=== PATIENT | female | born 1985 | race African-American/Black ===

== ENCOUNTER 2016-05-31 15:27 | Emergency (ER) | payer OTHER ==
[2016-05-31 15:33] VITALS: TEMP 98; BMI 37.5
[2016-05-31 17:00] LABS: BASOPHIL 0.7 % (0-2.0); EOSINOPHIL 2.8 % (0-4.5); MCH 30.9 pg (25.7-33.7); MCHC 33.1 g/dl (32.0-36.0); MEAN CELL VOLUME 93.3 fl (80-96); MEAN PLT VOLUME 6.6 fl (7.5-11.1); NEUTROPHILS 51.7 % (42.8-82.8); PLATELET COUNT 204 K/MM3 (134-434); RDW 13.7 % (11.6-15.6); WHITE BLOOD COUNT 7.2 K/mm3 (4.0-10.0)
[2016-05-31 17:01] LABS: URINE APPEARANCE CLEAR; URINE BILIRUBIN NEGATIVE (NEGATIVE); URINE BLOOD NEGATIVE (NEGATIVE); URINE COLOR YELLOW; URINE GLUCOSE (UA) NEGATIVE (NEGATIVE); URINE KETONE NEGATIVE (NEGATIVE); URINE LEUK ESTERASE NEGATIVE (NEGATIVE); URINE NITRITE NEGATIVE (NEGATIVE); URINE PROTEIN NEGATIVE (NEGATIVE); URINE UROBILINOGEN 2.0 E.U/dl E.U./dl (0.2-1.0)
--- NOTE | 2016-05-31 17:09 | PDOC ---
History of Present Illness - History of Present Illness Initial Comments: 05/31/16 17:52 The patient is a 31 year old female, with no significant past medical history, who presents to the emergency department with suprapubic abdominal pain for about a week. She reports the pain is localized to the area just below her bellybutton, constant, and nonradiating, which she states increased in severity just 3 days ago. The patient also reports feeling as if she is straining while urinating. The patient states her menstrual cycle has been irregular this past year and reports her most recent menstruation lasted until the beginning of May. She denies seeing her Veneer Sample Maker in the past 2 months because she was enrolled in classes that she could not miss. The patient reports one episode of emesis 2 days ago and denies any episodes since. LMP: March 2016 She denies chest pain, shortness of breath, headache and dizziness. She denies fever, chills, nausea, vomit, diarrhea and constipation. She denies dysuria, frequency, urgency and hematuria. Allergies:NKDA Past surgical history: x2 PCP - Dr. Abdirashid Ro residential framing carpenter: Dr. Soto <Marilynn Lara - Last Filed: 05/31/16 18:18> <Joy Inman - Last Filed: 05/31/16 18:29> - General Chief Complaint: Pain Stated Complaint: ABD PAIN Past History <Marilynn Lara - Last Filed: 05/31/16 18:18> - Past Medical History Psychiatric Problems: Yes (BIPOLAR, ANXIETY, DEPRESSION) - Reproductive History Is Patient Now?: No (#): 7 Para: 2 Dysfunctional Uterine Bleeding: Yes - Psycho/Social/Smoking Cessation Hx Suicidal Ideation: No Smoking Status: No Smoking History: Never smoked Number of Cigarettes Smoked Daily: 3 Information on smoking cessation initiated: No Hx Alcohol Use: No Drug/Substance Use Hx: No <Joy Inman - Last Filed: 05/31/16 18:29> - Past Medical History Allergies/Adverse Reactions: Allergies Allergy/AdvReac Type Severity Reaction Status Date / Time Shellfish AdvReac Severe Difficulty Verified 05/31/16 15:33 Breathing Home Medications: Ambulatory Orders Divalproex [Depakote -] 250 mg PO BID 11/27/15 Ondansetron [Zofran Odt -] 4 mg SL PRN PRN #14 od.tablet 11/27/15 Quetiapine Fumarate [Seroquel] 200 mg PO DAILY 11/27/15 Ibuprofen 600 mg PO TID PRN #21 tablet 12/22/15 Review of Systems - Review of Systems Able to Perform ROS?: Yes Comments:: 05/31/16 17:52 CONSTITUTIONAL: Absent: fever, chills, diaphoresis, generalized weakness, malaise, loss of appetite HEENT: Absent: rhinorrhea, nasal congestion, throat pain, throat swelling, difficulty swallowing, mouth swelling, ear pain, eye pain, visual Changes CARDIOVASCULAR: Absent: chest pain, syncope, palpitations, irregular heart rate, lightheadedness , peripheral edema RESPIRATORY: Absent: cough, shortness of breath, dyspnea with exertion, orthopnea, wheezing, stridor, hemoptysis GASTROINTESTINAL: (+) suprapubic abdominal pain, Absent:abdominal distension, nausea, vomiting, diarrhea, constipation, melena, hematochezia GENITOURINARY: Absent: dysuria, frequency, urgency, hesitancy, hematuria, flank pain, genital pain MUSCULOSKELETAL: Absent: myalgia, arthralgia, joint swelling SKIN: Absent: rash, itching, pallor HEMATOLOGIC/IMMUNOLOGIC: Absent: easy bleeding, easy bruising, lymphadenopathy, frequent infections ENDOCRINE: Absent: unexplained weight gain, unexplained weight loss, heat intolerance, cold intolerance NEUROLOGIC: Absent: headache, focal weakness or paresthesias, dizziness, unsteady gait, seizure, mental status changes, bladder or bowel incontinence PSYCHIATRIC: Absent: anxiety, depression, suicidal or homicidal ideation, hallucinations. <Marilynn Lara - Last Filed: 05/31/16 18:18> *Physical Exam - Vital Signs Last Vital Signs Temp Pulse Resp BP Pulse Ox 98 F 78 18 143/77 98 05/31/16 15:30 05/31/16 15:30 05/31/16 15:30 05/31/16 15:30 05/31/16 15:30 - Physical Exam Comments: 05/31/16 17:54 GENERAL: Well developed, well nourished. Awake and alert. No acute distress. HEENT: Normocephalic, atraumatic. PERRLA, EOMI. No conjunctival pallor. Sclera are non- icteric. Moist mucous membranes. Oropharynx is clear. NECK: Supple. Full ROM. No JVD. Carotid pulses 2+ and symmetric, without bruits. No thyromegaly. No lymphadenopathy. CARDIOVASCULAR: Regular rate and rhythm. No murmurs, rubs, or gallops. Distal pulses are 2+ and symmetric. PULMONARY: No evidence of respiratory distress. Lungs clear to auscultation bilaterally. No wheezing, rales or rhonchi. ABDOMINAL: Soft. Non-tender. Non-distended. No rebound or guarding. No organomegaly. Normoactive bowel sounds. MUSCULOSKELETAL Normal range of motion at all joints. No bony deformities or tenderness. No CVA tenderness. EXTREMITIES: No cyanosis. No clubbing. No edema. No calf tenderness. SKIN: Warm and dry. Normal capillary refill. No rashes. No jaundice. NEUROLOGICAL: Alert, awake, appropriate. Cranial nerves 2-12 intact. Normoreflexic in the upper and lower extremities. Normal speech. Toes are down-going bilaterally. Gait is normal without ataxia. PSYCHIATRIC: Cooperative. Good eye contact. Appropriate mood and affect. <Marilynn Lara - Last Filed: 05/31/16 18:18> - Vital Signs Last Vital Signs Temp Pulse Resp BP Pulse Ox 98 F 78 18 143/77 98 05/31/16 15:30 05/31/16 15:30 05/31/16 15:30 05/31/16 15:30 05/31/16 15:30 <Joy Inman - Last Filed: 05/31/16 18:29> ED Treatment Course - LABORATORY CBC & Chemistry Diagram: 05/31/16 16:35 05/31/16 16:35 - ADDITIONAL ORDERS Additional order review: Laboratory Results 05/31/16 16:35 Serum , Qual Negative Urine Color Yellow Urine Appearance Clear Urine pH 7.0 Ur Specific [place] 1.023 Urine Protein Negative Urine Glucose (UA) Negative Urine Ketones Negative Urine Blood Negative Urine Nitrite Negative Urine Bilirubin Negative Urine Urobilinogen 2.0 e.u/dl H Ur Leukocyte Esterase Negative 05/31/16 16:35 RBC 3.47 L MCV 93.3 MCHC 33.1 RDW 13.7 MPV 6.6 L Neutrophils % 51.7 Lymphocytes % 35.7 Monocytes % 9.1 Eosinophils % 2.8 Basophils % 0.7 - RADIOLOGY Radiograph Interpretation: 05/31/16 18:19 EXAM: Pelvic sonogram was read by Getachew Lundberg MD at 18:07 EST FINDINGS:There is a 1.2 cm x 1.0 cm simple cyst of the left ovary. Otherwise the uterus and ovaries are normal. No free fluid is seen. There is normal flow to both ovaries IMPRESSION: Findings of a simple cyst of the left ovary <Marilynn Lara - Last Filed: 05/31/16 18:18> - LABORATORY CBC & Chemistry Diagram: 05/31/16 16:35 05/31/16 16:35 - ADDITIONAL ORDERS Additional order review: Laboratory Results 05/31/16 16:35 Urine Color Yellow Urine Appearance Clear Urine pH 7.0 Ur Specific [place] 1.023 Urine Protein Negative Urine Glucose (UA) Negative Urine Ketones Negative Urine Blood Negative Urine Nitrite Negative Urine Bilirubin Negative Urine Urobilinogen 2.0 e.u/dl H Ur Leukocyte Esterase Negative 05/31/16 16:35 RBC 3.47 L MCV 93.3 MCHC 33.1 RDW 13.7 MPV 6.6 L Neutrophils % 51.7 Lymphocytes % 35.7 Monocytes % 9.1 Eosinophils % 2.8 Basophils % 0.7 - RADIOLOGY Radiology Studies Ordered: Category Date Time Status PELVIC / BLADDER US [US] Stat Ultrasound 05/31/16 16:35 Ordered <Joy Inman - Last Filed: 05/31/16 18:29> Medical Decision Making - Medical Decision Making 05/31/16 18:22 31 yo female p/w suprapubic pain since last week -no fever no chills, no diarrhea she has a soft,nontender abd exam -UA negative -neg preg test -cbc is unremarkab;e and chemistry was wnl pelvic US - small left ovarian cyst,no torsion, normal uterus imp pelvic pain plan- f/u with her parachute officer Dr Gallagher <Joy Inman - Last Filed: 05/31/16 18:29> *DC/Admit/Observation/Transfer - Attestations Scribe Attestion: 05/31/16 17:56 Documentation prepared by Marilynn Lara, acting as medical coding instructor for Joy Inman MD <Marilynn Lara - Last Filed: 05/31/16 18:18> <Joy Inman - Last Filed: 05/31/16 18:29> Diagnosis at time of Disposition: Suprapubic pressure - Discharge Dispostion Disposition: HOME Condition at time of disposition: Stable - Referrals Referrals: Abdirashid Ro [Primary Care Provider] - - Patient Instructions Printed Discharge Instructions: DI for Pelvic Pain Additional Instructions: please follow up with Dr Soto
[2016-05-31 17:19] LABS: ALBUMIN 4.1 g/dl (3.4-5.0); ALK PHOS 104 U/L (45-117); ANION GAP 5 (8-16); BILIRUBIN,TOTAL 0.5 mg/dL (0.2-1.0); CO2 30 mmol/L (21-32); CREATININE 0.7 mg/dL (0.55-1.02); GLUCOSE,RANDOM 93 mg/dL (74-106); SGOT/AST 24 U/L (15-37); SGPT/ALT 31 U/L (12-78); TOT PROT 7.3 g/dl (6.4-8.2)
[2016-05-31 18:35] VITALS: BP 122/83; PULSE 73
== END 2016-05-31 18:35 | disposition home or self-care (01) ==
LOC: JER 15:27
DX: N83.292 Other ovarian cyst, left side (principal)
CPT/HCPCS: 36415; 76856-TC; 80053; 81003; 84703; 85025; 99283-25

== ENCOUNTER 2016-09-06 15:19 | Emergency (ER) | payer OTHER ==
[2016-09-06 15:55] VITALS: TEMP 98.3; BMI 40.1
--- NOTE | 2016-09-06 16:36 | PDOC ---
History of Present Illness - General History Source: Patient Exam Limitations: No Limitations - History of Present Illness Initial Comments: 09/06/16 16:38 The patient is a 31 year old female, M4 with no significant past medical history who presents to the emergency department with dysfunctional vaginal bleeding for about 2 days. The patient reports going to see her GYNO who gave her pills to stop her bleeding. She also reports having a US recently revealing a cyst, but no made mention of fibroids. Patient reports to 4 pads per hour, currently wearing a diaper. She reports also having chief complaints of dizziness, and has been taking iron pills which she believes has been giving her abdominal cramping. LMP was about 2 months ago. She denies recent fevers, chills, or headache. She denies recent nausea, vomit, diarrhea or constipation. Allergies: NKA Past surgical history: x2 Social history: 2-3 cigarettes per day. Denies EtOH use and recreational drug use. OBGYN: <Cuco Silveira - Last Filed: 09/06/16 16:38> <Joy Inman - Last Filed: 09/06/16 18:03> - General Chief Complaint: Vaginal Bleeding Stated Complaint: VAGINAL BLEEDING,ABD PAIN Time Seen by Provider: 09/06/16 16:35 Past History <Cuco Silveira - Last Filed: 09/06/16 16:38> - Past Medical History Psychiatric Problems: Yes (BIPOLAR, ANXIETY, DEPRESSION) - Reproductive History (#): 7 Para: 2 Dysfunctional Uterine Bleeding: Yes - Psycho/Social/Smoking Cessation Hx Suicidal Ideation: No Smoking Status: No Smoking History: Current some day smoker Have you smoked in the past 12 months: Yes Number of Cigarettes Smoked Daily: 3 Information on smoking cessation initiated: No Hx Alcohol Use: No Drug/Substance Use Hx: No <Joy Inman - Last Filed: 09/06/16 18:03> - Past Medical History Allergies/Adverse Reactions: Allergies Allergy/AdvReac Type Severity Reaction Status Date / Time Shellfish AdvReac Severe Difficulty Verified 09/06/16 15:51 Breathing Home Medications: Ambulatory Orders NK [No Known Home Medication] 09/06/16 Review of Systems - Review of Systems Able to Perform ROS?: Yes Comments:: 09/06/16 16:39 CONSTITUTIONAL: Absent: fever, no chills, no fatigue EYES: Absent: visual changes ENT: Absent: ear pain, no sore throat CARDIOVASCULAR: Absent: chest pain, no palpitations RESPIRATORY: Absent: cough, no SOB GI: Absent: abdominal pain, no nausea, no vomiting, no constipation, no diarrhea GENITOURINARY: +dysfunctional vaginal bleeding. Absent: dysuria, no frequency, no hematuria MUSKULOSKELETAL: Absent: back pain, no arthralgia, no myalgia SKIN: Absent: rash NEURO: Absent: headache <Cuco Silveira - Last Filed: 09/06/16 16:38> *Physical Exam - Vital Signs Last Vital Signs Temp Pulse Resp BP Pulse Ox 98.3 F 98 H 19 137/68 98 09/06/16 15:51 09/06/16 15:51 09/06/16 15:51 09/06/16 15:51 09/06/16 15:51 <Cuco Silveira - Last Filed: 09/06/16 16:38> - Vital Signs Last Vital Signs Temp Pulse Resp BP Pulse Ox 98.3 F 98 H 19 137/68 98 09/06/16 15:51 09/06/16 15:51 09/06/16 15:51 09/06/16 15:51 09/06/16 15:51 <Joy Inman - Last Filed: 09/06/16 18:03> ED Treatment Course - LABORATORY CBC & Chemistry Diagram: 09/06/16 16:53 09/06/16 16:58 <Joy Inman - Last Filed: 09/06/16 18:03> Medical Decision Making - Medical Decision Making 09/06/16 17:02 31 yo female p/w heavy vaginal bleeding for the past 2 days. She started to have large clots and went thru 4 sanitary napkins/hour until she started to use a diaper -she has seen DrCharles for this and was placed on pills about 3 weeks ago. she also started taking iron supplements -she also had a vaginal US on 08/11/16 that showed normal thickened endometrial stripe within normal limits, no ovarian torsion PMH M4 PSH c section x 2 social smokes 2-3 cigarettes daily for past 6 months plan- preg test,cbc,type and screen 09/06/16 17:43 Patient has a negative test After reviewing her CBC her hemoglobin is 11.5 and her hematocrit is slightly than 35. She is not orthostatic and does not require a transfusion at this time I reviewed her chemistries and found her glucose to be elevated at 174. On her prior labs, she had no evidence of hyperglycemia. Patient was informed about her elevated glucose follow-up with her doctor this week Impression-dysfunctional uterine bleeding/hypergylcemia plan-patient will continue to take iron supplements, and call Dr. Soto's office for an appointment this week 09/06/16 17:55 <Joy Inman - Last Filed: 09/06/16 18:03> *DC/Admit/Observation/Transfer - Attestations Scribe Attestion: 09/06/16 16:38 Documentation prepared by Cuco Silveira, acting as medical director/head team physician for Joy Inman MD. <Cuco Silveira - Last Filed: 09/06/16 16:38> <Joy Inman - Last Filed: 09/06/16 18:03> Diagnosis at time of Disposition: Dysfunctional uterine bleeding, Hyperglycemia - Discharge Dispostion Disposition: HOME Condition at time of disposition: Stable - Referrals Referrals: Abdirashid Ro [Primary Care Provider] - Bc Soto MD [Staff Physician] - - Patient Instructions Printed Discharge Instructions: DI for Vaginal Bleeding, DI for Hyperglycemia - - Adult Additional Instructions: Please call Dr Gallagher's office tomorrow and make an appointment to see him
[2016-09-06 17:04] LABS: BASOPHIL 0.6 % (0-2.0); EOSINOPHIL 1.6 % (0-4.5); MCHC 32.6 g/dl (32.0-36.0); MEAN PLT VOLUME 7.1 fl (7.5-11.1); NEUTROPHILS 62.5 % (42.8-82.8); PLATELET COUNT 266 K/MM3 (134-434); RDW 15.7 % (11.6-15.6); WHITE BLOOD COUNT 10.8 K/mm3 (4.0-10.0)
[2016-09-06 17:14] LABS: INR 1.12 (0.82-1.09); PROTHROMBIN TIME (PATIENT) 12.3 SEC (9.98-11.88)
[2016-09-06 17:38] LABS: ALBUMIN 4.4 g/dl (3.4-5.0); ANION GAP 8 (8-16); CO2 30 mmol/L (21-32); GLUCOSE,RANDOM 174 mg/dL (74-106)
[2016-09-06 17:40] LABS: ALK PHOS 123 U/L (45-117); BILIRUBIN,TOTAL 0.4 mg/dL (0.2-1.0); COCKROFT - GAULT 169.065; CREATININE 0.9 mg/dL (0.55-1.02); SGOT/AST 31 U/L (15-37); SGPT/ALT 37 U/L (12-78)
[2016-09-06 18:33] VITALS: BP 129/76; PULSE 85
== END 2016-09-06 18:30 | disposition home or self-care (01) ==
LOC: JER 15:19
DX: N93.8 Other specified abnormal uterine and vaginal bleeding (principal); R73.9 Hyperglycemia, unspecified; F41.8 Other specified anxiety disorders; F31.9 Bipolar disorder, unspecified
CPT/HCPCS: 36415; 80053; 84703; 85025; 85610; 86850; 86900; 86901; 99282-25

== ENCOUNTER 2016-12-31 18:09 | Emergency (ER) | payer SELFPAY ==
[2016-12-31 18:21] VITALS: TEMP 98.4; BMI 37.5
[2016-12-31] MEDS ORDERED: SODIUM CHLORIDE 1,000 ML IV STA (20:08)
[2016-12-31] MEDS ORDERED: PANTOPRAZOLE SODIUM 40 MG in SODIUM CHLORIDE 100 ML IVPB ONE (20:08)
[2016-12-31] MEDS ORDERED: ONDANSETRON 4 MG/2 ML VIAL IVPUSH ONE (20:08)
[2016-12-31] MEDS ORDERED: PANTOPRAZOLE SODIUM 100 ML IVPB ONE (20:35)
[2016-12-31] MEDS ORDERED: ONDANSETRON 4 MG/2 ML VIAL ONE (20:35)
[2016-12-31 20:49] LABS: BASOPHIL 0.3 % (0-2.0); EOSINOPHIL 1.2 % (0-4.5); MCH 29.3 pg (25.7-33.7); MCHC 33.6 g/dl (32.0-36.0); MEAN CELL VOLUME 87.2 fl (80-96); MEAN PLT VOLUME 7.3 fl (7.5-11.1); NEUTROPHILS 54.5 % (42.8-82.8); PLATELET COUNT 201 K/MM3 (134-434); RDW 16.5 % (11.6-15.6)
[2016-12-31 20:53] LABS: URINE APPEARANCE CLOUDY; URINE BILIRUBIN NEGATIVE (NEGATIVE); URINE BLOOD 1+ (NEGATIVE); URINE COLOR YELLOW; URINE GLUCOSE (UA) 1+ (NEGATIVE); URINE KETONE NEGATIVE (NEGATIVE); URINE LEUK ESTERASE NEGATIVE (NEGATIVE); URINE NITRITE NEGATIVE (NEGATIVE); URINE PROTEIN NEGATIVE (NEGATIVE); URINE UROBILINOGEN NEGATIVE mg/dL (0.2-1.0)
[2016-12-31 21:21] LABS: URINE BACTERIA RARE /hpf (NONE SEEN); URINE MUCUS RARE; URINE RBC 7 /hpf (0-3); URINE WBC 7 /hpf (3-5)
[2016-12-31 21:24] LABS: AMYLASE 79 U/L (25-115); ANION GAP 7 (8-16); CALCIUM 8.7 mg/dL (8.5-10.1); CO2 27 mmol/L (21-32); CREATININE 0.8 mg/dL (0.55-1.02); GLUCOSE,RANDOM 164 mg/dL (74-106)
[2016-12-31 21:28] LABS: CPK 213 IU/L (26-192); TROPONIN I < 0.02 ng/ml (0.00-0.05)
--- NOTE | 2016-12-31 22:16 | PDOC ---
History of Present Illness - General Chief Complaint: Pain, Acute Stated Complaint: ABD PAIN Time Seen by Provider: 12/31/16 19:31 History Source: Patient Exam Limitations: No Limitations - History of Present Illness Travel History: No Initial Comments: 12/31/16 22:16 31yo Female patient w/ PmHx: Dysfunctional Uterine Bleed presents, NIDDM to ED c /o generalized abdominal pain x 3 weeks and Amenorrhea x 4 months, dizziness, n/ v/d, sore throat, and ankle swelling. Patient also reports not checking her Blood sugar, and stopped taking Metformin x 1 month due to inability to secure this medication. Patient denies fever, CP, Back pain, Diff breathing, dysuria, hematuria, rash, or any other complaints at this time. Timing/Duration: reports: constant. denies: getting worse, changing over time, intermittent, resolved prior to arrival, gone now, other Quality: reports: mild. denies: moderate, severe, aching, burning, cramping, dullness, fullness, sharpness, stabbing, throbbing, other Abdominal Pain Onset Location: reports: generalized abdomen. denies: RUQ, LUQ, RLQ, LLQ, epigastric, periumbilical, suprapubic, flank, unknown, other Pain Radiation: reports: no radiation. denies: RUQ, LUQ, RLQ, LLQ, epigastric, periumbilical, flank, groin, scapula, shoulder, chest, back, other Activities at Onset: denies: none, exertion, emotional upset, rest, sleep, no specific activity, eating, working, sexual intercourse, other Treatment Prior to Arrive: worse with: analgesics, antacids, cold pack, heat, laxative, enema, other Aggravating Factors: worse with: None, Defecation, Eating, Emotional upset, Exertion, [place], Movement, Voiding, Change in position Alleviating Factors: worse with: None, Belching, Shallow Breathing, Defecation, Eating, Holding Breath, Passing Gas, Change in Position, Rest, Voiding, Vomiting Past History - Travel Traveled outside of the country in the last 30 days: No Close contact w/someone who was outside of country & ill: No - Past Medical History Allergies/Adverse Reactions: Allergies Allergy/AdvReac Type Severity Reaction Status Date / Time Shellfish AdvReac Severe Difficulty Verified 12/31/16 18:11 Breathing Home Medications: Ambulatory Orders Metformin HCl 500 mg PO TID 12/31/16 Metformin HCl 500 mg PO TID #30 tablet 12/31/16 Psychiatric Problems: Yes (BIPOLAR, ANXIETY, DEPRESSION) - Reproductive History Is Patient Now?: (UNKNOWN) (#): 7 Para: 2 Dysfunctional Uterine Bleeding: Yes Spontaneous : 4 - Psycho/Social/Smoking Cessation Hx Suicidal Ideation: No Smoking Status: No Smoking History: Current some day smoker Have you smoked in the past 12 months: Yes Number of Cigarettes Smoked Daily: 4 Information on smoking cessation initiated: No Hx Alcohol Use: No Drug/Substance Use Hx: No Abd/GI Specific PMHX - Complaint Specific PMHX Colitis: No Diverticulitis: No Gall Bladder Disease: No GERD: No Hepatitis: No Irritable Bowel Synd (IBS): No Pancreatitis: No GI Ulcer Disease: No Review of Systems - Review of Systems Able to Perform ROS?: Yes Is the patient limited Kyrgyz proficient: No Constitutional: No: Chills, Fever HEENTM: Yes: Throat Pain Respiratory: No: Stridor, Wheezing Cardiac (ROS): No: Chest Pain ABD/GI: Yes: Diarrhea, Nausea, Vomiting, Abdominal cramping. No: Abdominal Distended, Constipated, Poor Appetite, Poor Fluid Intake, Rectal Bleeding : No: Burning, Dysuria, Discharge, Frequency, Flank Pain, Hematuria, Pain, Urgency Musculoskeletal: No: Back Pain Integumentary: No: Rash All Other Systems: Reviewed and Negative *Physical Exam - Vital Signs Last Vital Signs Temp Pulse Resp BP Pulse Ox 98.4 F 85 19 140/71 98 12/31/16 18:11 12/31/16 18:11 12/31/16 18:11 12/31/16 18:11 12/31/16 18:11 - Physical Exam General Appearance: Yes: Nourished, Appropriately Dressed. No: Apparent Distress, Mild Distress, Moderate Distress, Severe Distress HEENT: positive: EOMI, TREVOR, Normal ENT Inspection, Normal Voice, Symmetrical, TMs Normal, Pharynx Normal. negative: Pharyngeal Erythema, Tonsillar Exudate, Tonsillar Erythema, TM Bulging, TM Dull, TM Erythema Neck: positive: Trachea midline, Supple. negative: Decreased range of motion, Stridor, Lymphadenopathy (R), Lymphadenopathy (L), Tender lateral, Tender midline Respiratory/Chest: positive: Lungs Clear, Normal Breath Sounds. negative: Chest Tender, Respiratory Distress, Accessory Muscle Use, Labored Respiration, Rapid RR, Rhonchi, Stridor, Wheezing Cardiovascular: positive: Regular Rhythm, Regular Rate Gastrointestinal/Abdominal: positive: Normal Bowel Sounds, Soft. negative: Tender, Decreased BS, Distended, Guarding, Rebound, Tenderness Musculoskeletal: positive: Normal Inspection. negative: CVA Tenderness, Decreased Range of Motion, Vertebral Tenderness Extremity: positive: Normal Capillary Refill, Normal Inspection, Normal Range of Motion. negative: Pedal Edema, Swelling, Calf Tenderness, Erythema, Inflammation Integumentary: positive: Normal Color, Dry, Warm. negative: Diaphoresis, Moist , Hives, Petechiae, Rash, Swelling Neurologic: positive: batch records clerk II-XII NML intact, Fully Oriented, Alert, Normal Mood/ Affect, Normal Response, Motor Strength 5/5 Heart Score/ECG Review - History History: Slightly suspicious - Electrocardiogram EKG: Normal - Age Age: </= 45 - Risk Factors Risk Factors Heart Score: Yes Hx Diabetes Based on the list above the patient has:: 1-2 risk factors - Troponin Troponin: </= normal limit - Score Heart Score - Total: 1 - ECG Impressions Normal ECG: Yes Non-specific ST Elevation: No Ischemic Changes: No Bradycardia: No Torsades juan antonio Pointes: No WPW: No Comment:: 12/31/16 23:10 Heart Score is 1. ED Treatment Course - LABORATORY CBC & Chemistry Diagram: 12/31/16 20:27 12/31/16 20:27 - ADDITIONAL ORDERS Additional order review: Laboratory Results 12/31/16 12/31/16 12/31/16 20:27 20:27 20:27 Sodium 136 Potassium 4.1 Chloride 102 Carbon Dioxide 27 Anion Gap 7 L BUN 13 D Creatinine 0.8 Random Glucose 164 H Calcium 8.7 Creatine Kinase 213 H Creatine Kinase Index 0.6 CK-MB (CK-2) 1.332 Troponin I < 0.02 Total Amylase 79 Lipase 170 Urine Color Yellow Urine Appearance Cloudy Urine pH 7.0 Urine Protein Negative Urine Glucose (UA) 1+ H Urine Ketones Negative Urine Blood 1+ H Urine Nitrite Negative Urine Bilirubin Negative Urine Urobilinogen Negative Ur Leukocyte Esterase Negative Urine RBC 7 Urine WBC 7 Ur Epithelial Cells Many Urine Bacteria Rare Urine Mucus Rare Urine HCG, Qual Negative 12/31/16 20:27 Group A Strep Rapid Antigen - Final Throat 12/31/16 20:27 RBC 3.98 MCV 87.2 MCHC 33.6 RDW 16.5 H MPV 7.3 L Neutrophils % 54.5 Lymphocytes % 38.2 D Monocytes % 5.8 Eosinophils % 1.2 Basophils % 0.3 - RADIOLOGY Radiology Studies Ordered: Category Date Time Status CHEST PA & LAT [RAD] Stat Radiology 12/31/16 22:13 Ordered - Medications Given in the ED: ED Medications Discontinued Medications Generic Name Dose Route Start Last Admin Trade Name Brandonq PRN Reason Stop Dose Admin Pantoprazole Sodium 40 mg/ 100 mls @ 200 mls/hr 12/31/16 20:08 12/31/16 20:45 Sodium Chloride IVPB 12/31/16 20:37 200 mls/hr ONCE ONE Administration Sodium Chloride 1,000 mls @ 1,000 mls/hr 12/31/16 20:08 12/31/16 20:45 Normal Saline - IV 12/31/16 21:07 1,000 mls/hr ASDIR STA Administration Ondansetron HCl 4 mg 12/31/16 20:08 12/31/16 20:45 Zofran Injection IVPUSH 12/31/16 20:09 4 mg ONCE ONE Administration Medical Decision Making - Medical Decision Making 12/31/16 23:08 Patient states she does not want to wait for Chest X-ray at this time. Patient is requesting to be d/c'd to home. She states having 2 children at home and sister at bedside that is hungry. Patient verbalized she will return if symptoms worsen or any concerns. *DC/Admit/Observation/Transfer Diagnosis at time of Disposition: Abdominal pain Qualifiers: Abdominal location: generalized Qualified Code(s): R10.84 - Generalized abdominal pain - Discharge Dispostion Disposition: HOME Condition at time of disposition: Improved Admit: No - Prescriptions Prescriptions: Metformin HCl 500 mg PO TID #30 tablet - Patient Instructions Printed Discharge Instructions: DI for Abdominal Pain-Adult Additional Instructions: Follow up with your primary care provider this week for further evaluation. Take medications as prescribed. See if [facility] can give you Metformin at a discounted patel or even provide you with discount card. Return if any concerns. Print Language: ZAMBIAN
[2016-12-31] MEDS ORDERED: metFORMIN HCL 500 MG TABLET (FP) PO ONE (23:18)
[2016-12-31] MEDS ORDERED: metFORMIN HCL 500 MG TABLET (FP) ONE (23:22)
[2016-12-31 23:26] VITALS: BP 140/79; PULSE 78
--- NOTE | 2017-01-01 08:53 | EKG ---
Test Reason : Blood Pressure : / mmHG Vent. Rate : 069 BPM Atrial Rate : 069 BPM P-R Int : 154 ms QRS Dur : 078 ms QT Int : 410 ms P-R-T Axes : 032 042 048 degrees QTc Int : 439 ms POOR DATA QUALITY, INTERPRETATION MAY BE ADVERSELY AFFECTED NORMAL SINUS RHYTHM NONSPECIFIC T WAVE ABNORMALITY ABNORMAL ECG NO PREVIOUS ECGS AVAILABLE Confirmed by VIVIANA STEWART MD ([id number]) on 01/01/2017 8:53:31 AM Referred By: Confirmed By:VIVIANA STEWART MD
== END 2016-12-31 23:24 | disposition home or self-care (01) ==
LOC: JER 18:09
PROC: 3E033GC Introduction of Other Therapeutic Substance into Peripheral Vein, Percutaneous Approach (ICD-10-PCS; principal; 2016-12-31)
PROC: 3E033GC Introduction of Other Therapeutic Substance into Peripheral Vein, Percutaneous Approach (ICD-10-PCS; 2016-12-31)
DX: R10.84 Generalized abdominal pain (principal); N91.2 Amenorrhea, unspecified; E11.9 Type 2 diabetes mellitus without complications; Z79.84 Long term (current) use of oral hypoglycemic drugs; F17.210 Nicotine dependence, cigarettes, uncomplicated
CPT/HCPCS: 36415; 80048; 81003; 81015; 82150; 82553; 83690; 84484; 84703; 85025; 87070; 87077; 87430; 93005; 93010; 99283-25

== ENCOUNTER 2017-12-24 15:13 | Emergency (ER) | payer SELFPAY ==
--- NOTE | 2017-12-24 15:18 | PDOC ---
Rapid Medical Evaluation Time Seen by Provider: 12/24/17 15:15 Medical Evaluation: Allergies Allergy/AdvReac Type Severity Reaction Status Date / Time Shellfish AdvReac Severe Difficulty Verified 12/31/16 18:11 Breathing 12/24/17 15:15 I have performed a brief in-person evaluation of this patient. The patient presents with a chief complaint of: 5wk with bleeding X 4 days, seen at [facility] ED wednesday, sono no IUP, given Rhogam injection. Bleeding worsening yesterday Pertinent physical exam findings: I have ordered the following: labs and sono The patient will proceed to the ED for further evaluation. Discharge Disposition - Diagnosis Threatened in early - Referrals - Patient Instructions - Post Discharge Activity
[2017-12-24 15:20] VITALS: BP 137/83; PULSE 74; TEMP 98.2; BMI 28.0
--- NOTE | 2017-12-24 15:35 | PDOC ---
History of Present Illness - General Chief Complaint: Vaginal Bleeding Stated Complaint: VAGINAL BLEED / 4 WEEKS Time Seen by Provider: 12/24/17 15:15 History Source: Patient - History of Present Illness Timing/Duration: reports: getting worse Past History - Past Medical History Allergies/Adverse Reactions: Allergies Allergy/AdvReac Type Severity Reaction Status Date / Time Shellfish AdvReac Severe Difficulty Verified 12/24/17 15:17 Breathing Home Medications: Ambulatory Orders Metformin HCl [Metformin HCl ER] 500 mg PO DAILY 12/24/17 COPD: No Diabetes: Yes Psychiatric Problems: Yes (BIPOLAR, ANXIETY, DEPRESSION) - Reproductive History (#): 7 Para: 2 Dysfunctional Uterine Bleeding: Yes Spontaneous : 4 - Suicide/Smoking/Psychosocial Hx Smoking Status: No Smoking History: Current some day smoker Have you smoked in the past 12 months: Yes Number of Cigarettes Smoked Daily: 2 Information on smoking cessation initiated: No Hx Alcohol Use: No Drug/Substance Use Hx: No Abd/GI Specific PMHX - Complaint Specific PMHX Colitis: No Diverticulitis: No Gall Bladder Disease: No GERD: No Hepatitis: No Irritable Bowel Synd (IBS): No Pancreatitis: No GI Ulcer Disease: No Review of Systems - Review of Systems Constitutional: No: Fever ABD/GI: Yes: Abdominal cramping. No: Nausea, Vomiting : No: Dysuria, Flank Pain, Hematuria *Physical Exam - Vital Signs Last Vital Signs Temp Pulse Resp BP Pulse Ox 98.2 F 74 19 137/83 99 12/24/17 15:18 12/24/17 15:18 12/24/17 15:18 12/24/17 15:18 12/24/17 15:18 - Physical Exam General Appearance: Yes: Appropriately Dressed. No: Apparent Distress HEENT: positive: Normal Voice Neck: positive: Supple Female Pelvic Exam: positive: normal external exam, cervical os closed, normal adnexa, vaginal bleeding (small amount of vag bleed). negative: CMT, lesions, adnexal tenderness Gastrointestinal/Abdominal: positive: Tender (minimal ttp to lower abd diffusely , no ttp over [place]), Soft Musculoskeletal: negative: CVA Tenderness Integumentary: positive: Dry, Warm Neurologic: positive: Alert, Normal Mood/Affect Medical Decision Making - Medical Decision Making 12/24/17 15:31 32-year-old female, (s/p spon/elective ABs), ~ 4 weeks by dates , presents with vaginal bleeding. Patient states she initially started spotting 7 days ago and was seen at [facility] and had ultrasound done which "did not show anything" per patient, does not remember beta and not on abx. States she was given Rhogam at [facility]. Has not had her 1st yet but presented today because bleeding has worsened. Also complaining of lower abdominal pain radiating to back. No clots, dysuria, fever or chills. Also complaining of nausea on and off throughout her . See exam 1st trimester bleed R/o ectopic vs spon AB vs vag bleed in nl preg Stable w/ minimal ttp to lower abd and small amount of vag bleed w/ closed OS -beta -Given rhogam at [facility] 6 days ago -US -US 12/24/17 15:54 12/24/17 17:47 Beta 42. Ultrasound pending. Called [facility] and spoke to ER physician who states beta on 12/18 with 88.53 12/24/17 19:05 Pt signed out to giovana SUMNER, pending ultrasound report *DC/Admit/Observation/Transfer Diagnosis at time of Disposition: Threatened in early - Referrals Referrals: Abdirashid Ro [Primary Care Provider] - - Patient Instructions - Post Discharge Activity
[2017-12-24] MEDS ORDERED: ONDANSETRON 4 MG TABLET PO ONE (15:37)
[2017-12-24] MEDS ORDERED: ONDANSETRON *ODT* 4 MG TABLET ONE (15:50)
[2017-12-24 16:22] LABS: URINE APPEARANCE SLCLOUDY; URINE BILIRUBIN NEGATIVE (<2.0 mg/dL); URINE COLOR AMBER; URINE GLUCOSE (UA) NEGATIVE (NEGATIVE); URINE KETONE NEGATIVE (NEGATIVE); URINE LEUK ESTERASE NEGATIVE (NEGATIVE); URINE NITRITE NEGATIVE (NEGATIVE); URINE PROTEIN 1+ (NEGATIVE)
[2017-12-24 16:30] LABS: EPI CELLS FEW /HPF (FEW); URINE MUCUS MANY
[2017-12-24 16:31] LABS: COCAINE, UR NEGATIVE ng/ml (CUTOFF=300); METHADONE, UR NEGATIVE ng/ml (CUTOFF=300); OPIATES, URI NEGATIVE ng/ml (CUTOFF=300); PHENCYCLIDINE,URINE NEGATIVE ng/ml (CUTOFF=25); URINE AMPHETAMINES NEGATIVE ng/ml (CUTOFF=500); URINE BARBITURATES NEGATIVE ng/ml (CUTOFF=200); URINE BENZODIAZEPINES NEGATIVE ng/ml (CUTOFF=200)
--- NOTE | 2017-12-24 19:15 | PDOC ---
*Physical Exam - Vital Signs Last Vital Signs Temp Pulse Resp BP Pulse Ox 98.2 F 74 19 137/83 99 12/24/17 15:18 12/24/17 15:18 12/24/17 15:18 12/24/17 15:18 12/24/17 15:18 - Physical Exam General Appearance: Yes: Nourished, Appropriately Dressed. No: Apparent Distress Gastrointestinal/Abdominal: positive: Normal Bowel Sounds, Flat, Soft. negative : Tender Integumentary: positive: Normal Color, Dry, Diaphoresis Neurologic: positive: Fully Oriented, Alert ED Treatment Course - ADDITIONAL ORDERS Additional order review: Laboratory Results 12/24/17 12/24/17 12/24/17 15:45 15:45 15:45 POC Glucometer Beta HCG, Quant Urine Color [place] Urine Appearance Slcloudy Urine pH 6.0 Ur Specific [place] 1.027 Urine Protein 1+ H Urine Glucose (UA) Negative Urine Ketones Negative Urine Blood 3+ H Urine Nitrite Negative Urine Bilirubin Negative Urine Urobilinogen 2.0 H Ur Leukocyte Esterase Negative Urine WBC (Auto) 2 Urine RBC (Auto) 3 Ur Epithelial Cells Few Urine Mucus Many Urine HCG, Qual Positive Opiates Screen Negative Methadone Screen Negative Barbiturate Screen Negative Phencyclidine Screen Negative Ur Amphetamines Screen Negative MDMA (Ecstasy) Screen Negative Benzodiazepines Screen Negative Cocaine Screen Negative U Marijuana (THC) Screen Positive Blood Type Antibody Screen Antibody Identification Antigen Identification 12/24/17 12/24/17 12/24/17 15:36 15:30 15:30 POC Glucometer 87.49803 Beta HCG, Quant 42.3 Urine Color Urine Appearance Urine pH Ur Specific [place] Urine Protein Urine Glucose (UA) Urine Ketones Urine Blood Urine Nitrite Urine Bilirubin Urine Urobilinogen Ur Leukocyte Esterase Urine WBC (Auto) Urine RBC (Auto) Ur Epithelial Cells Urine Mucus Urine HCG, Qual Opiates Screen Methadone Screen Barbiturate Screen Phencyclidine Screen Ur Amphetamines Screen MDMA (Ecstasy) Screen Benzodiazepines Screen Cocaine Screen U Marijuana (THC) Screen Blood Type B NEGATIVE Antibody Screen Positive H Antibody Identification No Result Required. Antigen Identification No Result Required. 12/24/17 15:36 POC Glucometer [id number] - Medications Given in the ED: ED Medications Discontinued Medications Generic Name Dose Route Start Last Admin Trade Name Freq PRN Reason Stop Dose Admin Ondansetron HCl 4 mg 12/24/17 15:37 12/24/17 15:53 Zofran - PO 12/24/17 15:38 4 mg ONCE ONE Administration Medical Decision Making - Medical Decision Making 12/24/17 19:19 Sign out received from TAISHA Ford. Pt pending US read prior to discharge. -report is back at this time. No IUP/ is seen at this time. Pt reports being 5 weeks ; however, beta Hcg is only 42. Given low beta and no visualized, pt most likely has experienced a miscarriage. Patient blood type B-. Received Rhogam yesterday at [facility]. Will have pt return in two days for repeat beta and tvus to make sure the number is trending down. Will dc home at this time. Return precautions given. Pt understands all dc instructions and all questions were answered. *DC/Admit/Observation/Transfer Diagnosis at time of Disposition: Miscarriage - Discharge Dispostion Disposition: HOME Condition at time of disposition: Stable Decision to Admit order: No - Referrals Referrals: Abdirashid Ro [Primary Care Provider] - Gemma Thao MD [Staff Physician] - - Patient Instructions Printed Discharge Instructions: DI for Miscarriage Additional Instructions: Your ultrasound did not show a today. You have most likely experienced a miscarriage. Please return in two days for repeat blood work and ultrasound. Drink plenty of fluids and get plenty rest. Please follow up with your [employer] this week. Return to the ED sooner if you develop fevers, chills, abdominal pain, or if ou have any change sin your symptoms. - Post Discharge Activity Forms/Work/School Notes: Back to Work
== END 2017-12-24 19:50 | disposition home or self-care (01) ==
LOC: JER 15:13
DX: O26.891 Other specified pregnancy related conditions, first trimester (principal); Z3A.01 Less than 8 weeks gestation of pregnancy; O20.0 Threatened abortion
CPT/HCPCS: 36415; 76817-TC; 80307; 81003; 81015; 82962; 84702; 84703; 86850; 86870; 86900; 86901; 86902; 87491; 87591; 99283-25

== ENCOUNTER 2020-09-24 18:17 | Emergency (ER) | payer OTHER ==
[2020-09-24 18:30] VITALS: BP 161/84; PULSE 76; TEMP 98.5; BMI 30.7
[2020-09-24] MEDS ORDERED: ONDANSETRON 4 MG/2 ML VIAL IVPUSH ONE (18:50)
[2020-09-24] MEDS ORDERED: FAMOTIDINE 20 MG/50 ML IVPB 20 MG/50 ML MG IVPB ONE ×2 (18:50→19:38)
[2020-09-24] MEDS ORDERED: SUCRALFATE 1 GM/10 ML UNIT DOSE CUPS PO ONE (18:50)
[2020-09-24] MEDS ORDERED: SODIUM CHLORIDE 1,000 ML IV STA ×2 (18:50→21:16)
[2020-09-24] MEDS ORDERED: SUCRALFATE 1 GM TABLET (FP) ONE (19:37)
[2020-09-24] MEDS ORDERED: ONDANSETRON 4 MG/2 ML VIAL ONE (19:37)
[2020-09-24] MEDS ORDERED: SUCRALFATE 1 GM TABLET (FP) PO ONE (19:45)
[2020-09-24 20:26] LABS: BASO % 0.6 % (0-2.0); EOS % 0.9 % (0-4.5); HEMATOCRIT 41.3 % (32.4-45.2); HEMOGLOBIN 14.2 GM/dL (10.7-15.3); LYMPH % 29.7 % (8-40); MCH 34.5 pg (25.7-33.7); MCHC 34.4 g/dl (32.0-36.0); MEAN CELL VOLUME 100.3 fl (80-96); MEAN PLT VOLUME 9.2 fl (7.5-11.1); MONO % 6.2 % (3.8-10.2); NEUT % 62.6 % (42.8-82.8); PLATELET COUNT 177 K/MM3 (134-434); RBC 4.12 M/mm3 (3.60-5.2); RDW 12.6 % (11.6-15.6); WHITE BLOOD COUNT 12.5 K/mm3 (4.0-10.0)
[2020-09-24 20:28] LABS: PH,URINE 5.5 (5.0-8.0); URINE APPEARANCE CLEAR; URINE BILIRUBIN NEGATIVE (NEGATIVE); URINE COLOR DK YELLOW; URINE GLUCOSE (UA) NEGATIVE (NEGATIVE); URINE KETONE 3+ (NEGATIVE); URINE LEUK ESTERASE NEGATIVE (NEGATIVE); URINE NITRITE NEGATIVE (NEGATIVE); URINE PROTEIN TRACE (NEGATIVE); URINE UROBILINOGEN 0.2 mg/dL (0.2-1.0)
[2020-09-24 20:33] LABS: HCG,QUALITATIVE URINE Negative
[2020-09-24 20:55] LABS: CHLORIDE 102 mmol/L (98-107); SODIUM 129 mmol/L (136-145)
[2020-09-24 20:57] LABS: CALCIUM 9.7 mg/dL (8.5-10.1); GLUCOSE,RANDOM 66 mg/dL (74-106)
[2020-09-24 20:58] LABS: ALBUMIN 4.6 g/dl (3.4-5.0); BLOOD UREA NITROGEN 10.5 mg/dL (7-18); CO2 24 mmol/L (21-32); LIPASE 56 U/L (73-393)
[2020-09-24 21:00] LABS: CREATININE 0.8 mg/dL (0.55-1.3)
[2020-09-24 21:02] LABS: BILIRUBIN,TOTAL 0.8 mg/dL (0.2-1); TOT PROT 9.4 g/dl (6.4-8.2)
[2020-09-24 21:03] LABS: ALK PHOS 92 U/L (45-117)
[2020-09-24 21:14] LABS: ANION GAP 2 MMOL/L (8-16); SGOT/AST 112 U/L (15-37); SGPT/ALT 40 U/L (13-61)
[2020-09-24 22:31] LABS: CALCIUM 9.2 mg/dL (8.5-10.1)
[2020-09-24 22:32] LABS: BLOOD UREA NITROGEN 9.9 mg/dL (7-18)
[2020-09-24 22:35] LABS: CREATININE 0.7 mg/dL (0.55-1.3)
== END 2020-09-24 23:45 | disposition home or self-care (01) ==
LOC: JER 18:17
PROC: 3E033GC Introduction of Other Therapeutic Substance into Peripheral Vein, Percutaneous Approach (ICD-10-PCS; principal; 2020-09-24)
PROC: 3E033GC Introduction of Other Therapeutic Substance into Peripheral Vein, Percutaneous Approach (ICD-10-PCS; 2020-09-24)
PROC: 3E0337Z Introduction of Electrolytic and Water Balance Substance into Peripheral Vein, Percutaneous Approach (ICD-10-PCS; 2020-09-24)
PROC: 3E0337Z Introduction of Electrolytic and Water Balance Substance into Peripheral Vein, Percutaneous Approach (ICD-10-PCS; 2020-09-24)
DX: R11.2 Nausea with vomiting, unspecified (principal)
CPT/HCPCS: 36415; 80048; 80053; 81003; 82962; 83690; 84703; 85025; 87086; 99284-25

== ENCOUNTER 2020-11-07 20:16 | Inpatient (IN) | payer OTHER ==
[2020-11-07] MEDS ORDERED: ACETAMINOPHEN 1000 MG/100 ML VIAL (NON FORMULARY) IVPB ONE (20:56)
[2020-11-07] MEDS ORDERED: FAMOTIDINE 20 MG/50 ML IVPB 20 MG/50 ML MG IVPB ONE ×2 (20:57→21:05)
[2020-11-07] MEDS ORDERED: ACETAMINOPHEN INJECTION 100 ML IVPB ONE (21:05)
[2020-11-07 21:11] LABS: BASO % 0.2 % (0-2.0); EOS % 0.4 % (0-4.5); HEMATOCRIT 35.2 % (32.4-45.2); LYMPH % 37.2 % (8-40); MCHC 34.2 g/dl (32.0-36.0); MEAN CELL VOLUME 99.3 fl (80-96); MONO % 6.5 % (3.8-10.2); NEUT % 55.7 % (42.8-82.8); PLATELET COUNT 200 10^3/uL (134-434); RBC 3.55 M/mm3 (3.60-5.2); RDW 12.5 % (11.6-15.6); WHITE BLOOD COUNT 7.9 K/mm3 (4.0-10.0)
[2020-11-07 21:39] LABS: MAGNESIUM 1.9 mg/dL (1.8-2.4)
[2020-11-07 21:43] LABS: PHOSPHOROUS 4.4 mg/dL (2.5-4.9)
[2020-11-07 21:45] LABS: CHLORIDE 104 mmol/L (98-107); SODIUM 137 mmol/L (136-145)
[2020-11-07 21:48] LABS: ANION GAP 7 MMOL/L (8-16); BLOOD UREA NITROGEN 11.4 mg/dL (7-18); CALCIUM 8.6 mg/dL (8.5-10.1); CO2 26 mmol/L (21-32); GLUCOSE,RANDOM 163 mg/dL (74-106)
[2020-11-07 21:51] LABS: CREATININE 0.7 mg/dL (0.55-1.3); SGOT/AST 21 U/L (15-37); SGPT/ALT 30 U/L (13-61)
[2020-11-07 21:53] LABS: BILIRUBIN,TOTAL 0.4 mg/dL (0.2-1); TOT PROT 7.2 g/dl (6.4-8.2)
[2020-11-07 21:54] LABS: ALK PHOS 91 U/L (45-117)
[2020-11-07 22:18] LABS: URINE APPEARANCE CLEAR; URINE BILIRUBIN NEGATIVE (NEGATIVE); URINE COLOR YELLOW; URINE GLUCOSE (UA) NEGATIVE (NEGATIVE); URINE KETONE NEGATIVE (NEGATIVE); URINE LEUK ESTERASE NEGATIVE (NEGATIVE); URINE NITRITE NEGATIVE (NEGATIVE); URINE PROTEIN NEGATIVE (NEGATIVE)
[2020-11-07 22:24] LABS: LIPASE 183 U/L (73-393)
[2020-11-08 04:22] VITALS: BMI 30.4
[2020-11-08] MEDS ORDERED: ACETAMINOPHEN 325 MG TABLET (FP) PO PRN (05:50)
[2020-11-08 08:08] LABS: BASO % 0.5 % (0-2.0); EOS % 1.6 % (0-4.5); HEMATOCRIT 35.3 % (32.4-45.2); HEMOGLOBIN 11.9 GM/dL (10.7-15.3); LYMPH % 28.3 % (8-40); MCH 33.9 pg (25.7-33.7); MCHC 33.9 g/dl (32.0-36.0); MEAN CELL VOLUME 100.1 fl (80-96); MEAN PLT VOLUME 7.6 fl (7.5-11.1); MONO % 7.1 % (3.8-10.2); NEUT % 62.5 % (42.8-82.8); PLATELET COUNT 190 10^3/uL (134-434); RBC 3.52 M/mm3 (3.60-5.2); RDW 12.8 % (11.6-15.6); WHITE BLOOD COUNT 9.2 K/mm3 (4.0-10.0)
[2020-11-08 08:19] LABS: CHLORIDE 105 mmol/L (98-107); SODIUM 139 mmol/L (136-145)
[2020-11-08 08:22] LABS: ANION GAP 8 MMOL/L (8-16); BLOOD UREA NITROGEN 10.8 mg/dL (7-18); CALCIUM 8.5 mg/dL (8.5-10.1); CO2 27 mmol/L (21-32); GLUCOSE,RANDOM 144 mg/dL (74-106)
[2020-11-08 08:26] LABS: CREATININE 0.6 mg/dL (0.55-1.3)
[2020-11-08] MEDS ORDERED: POTASSIUM CHLORIDE TABS 20 MEQ TABLET.ER (FP) PO ONE (09:25)
[2020-11-08] MEDS ORDERED: POLYETHYLENE GLYCOL 3350 119 GM BTL PO SCH (10:00)
[2020-11-08] MEDS: PANTOPRAZOLE 40 MG TABLET PO SCH (11:48)
[2020-11-08] MEDS: POLYETHYLENE GLYCOL (HEALTHYLAX) 3350 17 GM PACKET PO SCH ×2 (11:48→22:15)
[2020-11-09] MEDS: PANTOPRAZOLE 40 MG TABLET PO SCH (10:03)
[2020-11-09] MEDS: POLYETHYLENE GLYCOL (HEALTHYLAX) 3350 17 GM PACKET PO SCH ×2 (10:09→21:57)
[2020-11-10] MEDS: POLYETHYLENE GLYCOL (HEALTHYLAX) 3350 17 GM PACKET PO SCH ×2 (09:10→21:25)
[2020-11-10] MEDS: PANTOPRAZOLE 40 MG TABLET PO SCH (09:11)
[2020-11-10] MEDS: TOPIRAMATE 25 MG TABLET PO SCH (12:45)
[2020-11-10] MEDS: AMOXICILLIN 500 MG CAPSULE (FP) PO SCH (21:25)
[2020-11-11 07:39] LABS: BLOOD UREA NITROGEN 11.3 mg/dL (7-18); CALCIUM 8.8 mg/dL (8.5-10.1); MAGNESIUM 2.3 mg/dL (1.8-2.4)
[2020-11-11 07:43] LABS: CREATININE 0.7 mg/dL (0.55-1.3)
[2020-11-11] MEDS ORDERED: PT OWN MED DRAWER 7, Y5N ONE (09:34)
[2020-11-11] MEDS: POLYETHYLENE GLYCOL (HEALTHYLAX) 3350 17 GM PACKET PO SCH (10:10)
[2020-11-11] MEDS: AMOXICILLIN 500 MG CAPSULE (FP) PO SCH (10:10)
[2020-11-11] MEDS: PANTOPRAZOLE 40 MG TABLET PO SCH (10:11)
[2020-11-11] MEDS: TOPIRAMATE 25 MG TABLET PO SCH (10:11)
[2020-11-11 12:09] VITALS: BP 136/78; PULSE 91; TEMP 98.1
== END 2020-11-11 10:49 | disposition home or self-care (01) | DRG 53 ==
LOC: JER 20:16 → JERBED 11-08 01:52 → OBSVTOIN 11-08 02:39 → J4W 11-08 04:34
PROVIDERS: ADMIT Internal Medicine; ATTEND Family Medicine
DX: R56.9 Unspecified convulsions (principal); R55 Syncope and collapse; J45.909 Unspecified asthma, uncomplicated; K21.9 Gastro-esophageal reflux disease without esophagitis; F41.8 Other specified anxiety disorders; F31.9 Bipolar disorder, unspecified; R10.84 Generalized abdominal pain; R10.13 Epigastric pain
CPT/HCPCS: 36415; 70450-TC; 70551-TC; 74177-TC; 80048; 80053; 81003; 82550; 82962; 83690; 83735; 84100; 84484; 84703; 85025; 93005; 93010; 93306-TC; 95816; 99285-25; C9803; G0378; J0131; U0003; U0005

== ENCOUNTER 2021-02-08 16:19 | Emergency (ER) | payer OTHER ==
[2021-02-08 16:32] VITALS: BP 122/77; PULSE 92; TEMP 98; BMI 35.9
[2021-02-08] MEDS ORDERED: ACETAMINOPHEN 1000 MG/100 ML VIAL IVPB ONE (18:01)
[2021-02-08] MEDS ORDERED: METOCLOPRAMIDE HCL INJECTION 10 MG/2 ML VIAL IVPUSH ONE (18:01)
[2021-02-08] MEDS ORDERED: SODIUM CHLORIDE 0.9% 500 ML INFUS.BAG IV ONE (18:01)
[2021-02-08] MEDS ORDERED: METOCLOPRAMIDE HCL INJECTION 10 MG/2 ML VIAL ONE (18:06)
[2021-02-08] MEDS ORDERED: ACETAMINOPHEN INJECTION 100 ML IVPB ONE (18:07)
[2021-02-08 18:13] LABS: BASO % 0.6 % (0-2.0); EOS % 1.1 % (0-4.5); HEMATOCRIT 36.9 % (32.4-45.2); HEMOGLOBIN 12.8 GM/dL (10.7-15.3); LYMPH % 29.4 % (8-40); MCH 32.8 pg (25.7-33.7); MCHC 34.6 g/dl (32.0-36.0); MEAN CELL VOLUME 94.8 fl (80-96); MEAN PLT VOLUME 6.7 fl (7.5-11.1); MONO % 6.2 % (3.8-10.2); NEUT % 62.7 % (42.8-82.8); PLATELET COUNT 229 10^3/uL (134-434); RBC 3.89 M/mm3 (3.60-5.2); RDW 12.4 % (11.6-15.6); WHITE BLOOD COUNT 9.4 K/mm3 (4.0-10.0)
[2021-02-08] MEDS ORDERED: MAGNESIUM SULF 50% (8.12 MEQ/2 ML-1 GM VIAL) IVPB ONE (18:34)
[2021-02-08 18:42] LABS: CALCIUM 8.7 mg/dL (8.5-10.1)
[2021-02-08 18:43] LABS: ALBUMIN 3.1 g/dl (3.4-5.0); BLOOD UREA NITROGEN 8.4 mg/dL (7-18)
[2021-02-08 18:45] LABS: CREATININE 0.5 mg/dL (0.55-1.3)
[2021-02-08 18:47] LABS: BILIRUBIN,TOTAL 0.2 mg/dL (0.2-1); TOT PROT 6.9 g/dl (6.4-8.2)
[2021-02-08 19:19] LABS: URINE APPEARANCE CLEAR; URINE BILIRUBIN NEGATIVE (NEGATIVE); URINE COLOR DK YELLOW; URINE GLUCOSE (UA) 3+ (NEGATIVE); URINE KETONE NEGATIVE (NEGATIVE); URINE LEUK ESTERASE NEGATIVE (NEGATIVE); URINE NITRITE NEGATIVE (NEGATIVE); URINE PROTEIN NEGATIVE (NEGATIVE)
== END 2021-02-08 19:59 | disposition home or self-care (01) ==
LOC: JER 16:19
PROC: 3E0333Z Introduction of Anti-inflammatory into Peripheral Vein, Percutaneous Approach (ICD-10-PCS; principal; 2021-02-08)
PROC: 3E033GC Introduction of Other Therapeutic Substance into Peripheral Vein, Percutaneous Approach (ICD-10-PCS; 2021-02-08)
DX: O26.892 Other specified pregnancy related conditions, second trimester (principal); R51.9 Headache, unspecified; Z3A.15 15 weeks gestation of pregnancy
CPT/HCPCS: 36415; 76815; 80053; 81003; 82962; 85025; 87086; 93005; 93010; 99285-25; J0131

== ENCOUNTER 2022-03-02 07:26 | Emergency (ER) | payer OTHER ==
[2022-03-02 07:55] VITALS: BP 114/70; PULSE 64; RESP 17; TEMP 98.1; BMI 33.2
[2022-03-02] MEDS ORDERED: IBUPROFEN 600 MG TABLET (FP) PO ONE (08:31)
[2022-03-02] MEDS ORDERED: ACETAMINOPHEN 500 MG TABLET (FP) PO ONE (08:38)
[2022-03-02] MEDS ORDERED: ACETAMINOPHEN 500 MG TABLET (FP) ONE (09:18)
== END 2022-03-02 10:25 | disposition home or self-care (01) ==
LOC: JER 07:26 → JERFT 07:26
DX: S89.91XA Unspecified injury of right lower leg, initial encounter (principal); X50.9XXA Other and unspecified overexertion or strenuous movements or postures, initial encounter
CPT/HCPCS: 73564-TC-RT-FY; 99283-25